=== PATIENT | female | born 1960 | race Caucasian/White ===

== ENCOUNTER → 2021-01-13 | Outpatient (CLI) | payer OTHER ==
[~2021-01-13] MED LIST: BACTRIM DS TAB1 EACH PO; LISINOPRIL20 MG PO; LORTABELXR PO; NORCO 5-325 TA1 EACH PO; ONDANSETRON HCL4 M2 PO
== END ==
LOC: M.CT 13:05
PROVIDERS: ATTEND Family Medicine
DX: Z13.6 Encounter for screening for cardiovascular disorders (principal); I25.10 Atherosclerotic heart disease of native coronary artery without angina pectoris; K76.89 Other specified diseases of liver